=== PATIENT | male | born 1985 | race Caucasian/White ===

== ENCOUNTER 2020-05-15 19:28 | Emergency (ER) | payer OTHER ==
[~2020-05-15 19:28] MED LIST: AFRIN15 M1; AMOXICILLIN500 MG PO; AMOXICILLIN875 MG PO; BACTRIM DS TAB1 EACH PO; IBUPROFEN800 MG PO; KEFLEX500 MG PO; ZOFRAN 4 MG TAB4 MG PO
== END 2020-05-16 02:07 | disposition home or self-care (01) ==
LOC: ER1 19:28
PROVIDERS: Family Medicine
DX: F20.9 Schizophrenia, unspecified (principal); F15.10 Other stimulant abuse, uncomplicated; F17.200 Nicotine dependence, unspecified, uncomplicated; Z88.6 Allergy status to analgesic agent
CPT/HCPCS: 80307; 99284

== ENCOUNTER 2020-05-16 17:36 | Emergency (ER) | payer OTHER | END 2020-05-16 22:30 | disposition short-term general hospital (02) | LOC: ER1 17:36 | DX: F22 Delusional disorders (principal); Z20.828 Contact with and (suspected) exposure to other viral communicable diseases | CPT/HCPCS: 99285; U0002 ==

== ENCOUNTER 2020-06-05 16:49 | Emergency (ER) | payer OTHER | END 2020-06-05 22:28 | disposition home or self-care (01) | LOC: ER1 16:49 | DX: F20.9 Schizophrenia, unspecified (principal); F17.200 Nicotine dependence, unspecified, uncomplicated; Z20.822 Contact with and (suspected) exposure to COVID-19 | CPT/HCPCS: 99284; U0002 ==

== ENCOUNTER 2020-06-15 22:05 | Emergency (ER) | payer OTHER ==
[2020-06-16 01:35] LABS: RED BLOOD COUNT 5.25 M/UL (4.20-5.50); WHITE BLOOD COUNT 8.8 K/UL (4.5-11.0)
[2020-06-16 01:55] LABS: BUN/CREATININE RATIO 9 (0-10)
== END 2020-06-16 09:37 | disposition home or self-care (01) ==
LOC: ER1 22:05
PROVIDERS: Emergency Medicine; Family Medicine
DX: F20.9 Schizophrenia, unspecified (principal); Z88.6 Allergy status to analgesic agent; Z20.822 Contact with and (suspected) exposure to COVID-19
CPT/HCPCS: 71046; 80053; 80307; 81001; 85025; 85610; 93005; 99284; G0480; U0002

== ENCOUNTER 2020-07-10 20:50 | Emergency (ER) | payer OTHER | END 2020-07-11 02:30 | disposition home or self-care (01) | LOC: ER1 20:50 | DX: F31.9 Bipolar disorder, unspecified (principal); R44.1 Visual hallucinations; R00.0 Tachycardia, unspecified; F17.210 Nicotine dependence, cigarettes, uncomplicated; R44.0 Auditory hallucinations | CPT/HCPCS: 93005; 99284 ==

== ENCOUNTER 2020-07-11 20:21 | Emergency (ER) | payer OTHER | END 2020-07-12 04:22 | disposition home or self-care (01) | LOC: ER1 20:21 | DX: F32.9 Major depressive disorder, single episode, unspecified (principal); F17.210 Nicotine dependence, cigarettes, uncomplicated | CPT/HCPCS: 99284 ==

== ENCOUNTER 2020-07-29 19:07 | Emergency (ER) | payer OTHER | END 2020-07-30 09:05 | disposition short-term general hospital (02) | LOC: ER1 19:07 | DX: F20.9 Schizophrenia, unspecified (principal); Z20.822 Contact with and (suspected) exposure to COVID-19; F17.210 Nicotine dependence, cigarettes, uncomplicated | CPT/HCPCS: 99285; U0002 ==

== ENCOUNTER 2020-08-03 22:53 | Emergency (ER) | payer OTHER | END 2020-08-05 15:23 | disposition home or self-care (01) | LOC: ER1 22:53 | DX: R44.0 Auditory hallucinations (principal); R44.1 Visual hallucinations; R45.851 Suicidal ideations; F17.210 Nicotine dependence, cigarettes, uncomplicated; Z88.8 Allergy status to other drugs, medicaments and biological substances | CPT/HCPCS: 99284 ==

== ENCOUNTER 2020-08-07 21:43 | Emergency (ER) | payer OTHER | END 2020-08-08 06:35 | disposition short-term general hospital (02) | LOC: ER1 21:43 | PROVIDERS: Physician Assistant | DX: S90.421A Blister (nonthermal), right great toe, initial encounter (principal); R44.0 Auditory hallucinations; Z20.822 Contact with and (suspected) exposure to COVID-19; F17.210 Nicotine dependence, cigarettes, uncomplicated | CPT/HCPCS: 80307; 81001; 87086; 99285; U0002 ==

== ENCOUNTER 2020-09-06 20:12 | Emergency (ER) | payer OTHER | END 2020-09-07 07:09 | disposition short-term general hospital (02) | LOC: ER1 20:12 | DX: R44.3 Hallucinations, unspecified (principal); R11.0 Nausea; Z20.822 Contact with and (suspected) exposure to COVID-19 | CPT/HCPCS: 99285; U0002 ==

== ENCOUNTER 2020-09-26 21:06 | Emergency (ER) | payer OTHER | END 2020-09-27 03:15 | disposition home or self-care (01) | LOC: ER1 21:06 | DX: F20.9 Schizophrenia, unspecified (principal); F17.210 Nicotine dependence, cigarettes, uncomplicated; Z88.5 Allergy status to narcotic agent | CPT/HCPCS: 99283 ==

== ENCOUNTER 2020-10-03 16:13 | Emergency (ER) | payer OTHER | END 2020-10-03 19:05 | disposition home or self-care (01) | LOC: ER1 16:13 | DX: F29 Unspecified psychosis not due to a substance or known physiological condition (principal); E86.0 Dehydration; F17.210 Nicotine dependence, cigarettes, uncomplicated; Z88.6 Allergy status to analgesic agent | CPT/HCPCS: 99284 ==

== ENCOUNTER 2020-10-03 21:07 | Emergency (ER) | payer OTHER | END 2020-10-04 04:44 | disposition short-term general hospital (02) | LOC: ER1 21:07 | DX: R44.3 Hallucinations, unspecified (principal); F31.9 Bipolar disorder, unspecified; Z20.822 Contact with and (suspected) exposure to COVID-19 | CPT/HCPCS: 99285; U0002 ==

== ENCOUNTER 2020-10-12 20:51 | Emergency (ER) | payer OTHER | END 2020-10-13 06:29 | disposition home or self-care (01) | LOC: ER1 20:51 | DX: F20.9 Schizophrenia, unspecified (principal); F17.200 Nicotine dependence, unspecified, uncomplicated; F29 Unspecified psychosis not due to a substance or known physiological condition | CPT/HCPCS: 99284 ==

== ENCOUNTER 2020-10-14 23:45 | Emergency (ER) | payer OTHER | END 2020-10-15 06:22 | disposition home or self-care (01) | LOC: ER1 23:45 | DX: F20.9 Schizophrenia, unspecified (principal); F17.200 Nicotine dependence, unspecified, uncomplicated; Z88.8 Allergy status to other drugs, medicaments and biological substances | CPT/HCPCS: 51702; 99283 ==

== ENCOUNTER 2020-10-21 21:55 | Emergency (ER) | payer OTHER | END 2020-10-22 03:00 | disposition left against medical advice (07) | LOC: ER1 21:55 | DX: Z53.21 Procedure and treatment not carried out due to patient leaving prior to being seen by health care provider (principal) ==

== ENCOUNTER 2020-10-22 20:01 | Emergency (ER) | payer OTHER | END 2020-10-23 01:30 | disposition left against medical advice (07) | LOC: ER1 20:01 | DX: Z53.21 Procedure and treatment not carried out due to patient leaving prior to being seen by health care provider (principal) ==

== ENCOUNTER 2021-01-26 12:29 | Emergency (ER) | payer OTHER | END 2021-01-26 12:47 | disposition left against medical advice (07) | LOC: ER1 12:29 | DX: Z53.21 Procedure and treatment not carried out due to patient leaving prior to being seen by health care provider (principal) ==

== ENCOUNTER 2021-01-31 06:36 | Emergency (ER) | payer OTHER | END 2021-01-31 07:17 | disposition left against medical advice (07) | LOC: ER1 06:36 | DX: Z53.21 Procedure and treatment not carried out due to patient leaving prior to being seen by health care provider (principal) ==

== ENCOUNTER 2021-02-05 00:22 | Emergency (ER) | payer OTHER | END 2021-02-05 03:00 | disposition left against medical advice (07) | LOC: ER1 00:22 | DX: F29 Unspecified psychosis not due to a substance or known physiological condition (principal) | CPT/HCPCS: 99283 ==

== ENCOUNTER 2021-02-05 02:54 | Emergency (ER) | payer OTHER | END 2021-02-05 05:45 | disposition home or self-care (01) | LOC: ER1 02:54 | DX: R44.3 Hallucinations, unspecified (principal); Z88.5 Allergy status to narcotic agent; F17.200 Nicotine dependence, unspecified, uncomplicated | CPT/HCPCS: 99284 ==

== ENCOUNTER 2021-02-05 15:59 | Emergency (ER) | payer OTHER | END 2021-02-06 10:50 | disposition short-term general hospital (02) | LOC: ER1 15:59 | PROVIDERS: Physician Assistant Medical | DX: Z20.822 Contact with and (suspected) exposure to COVID-19 (principal) | CPT/HCPCS: 80307; 81001; 99285; U0002 ==

== ENCOUNTER 2021-02-18 18:50 | Emergency (ER) | payer OTHER | END 2021-02-18 23:40 | disposition home or self-care (01) | LOC: ER1 18:50 | DX: R44.0 Auditory hallucinations (principal); F17.210 Nicotine dependence, cigarettes, uncomplicated; Z88.8 Allergy status to other drugs, medicaments and biological substances | CPT/HCPCS: 99284 ==

== ENCOUNTER 2021-02-20 02:25 | Emergency (ER) | payer OTHER | END 2021-02-20 02:50 | disposition home or self-care (01) | LOC: ER1 02:25 | DX: F20.9 Schizophrenia, unspecified (principal) | CPT/HCPCS: 99284 ==

== ENCOUNTER 2021-02-25 13:29 | Emergency (ER) | payer OTHER | END 2021-02-25 16:40 | disposition home or self-care (01) | LOC: ER1 13:29 | DX: R44.3 Hallucinations, unspecified (principal); F17.210 Nicotine dependence, cigarettes, uncomplicated; Z88.8 Allergy status to other drugs, medicaments and biological substances | CPT/HCPCS: 99285 ==

== ENCOUNTER 2021-03-10 15:33 | Emergency (ER) | payer OTHER | END 2021-03-11 01:00 | disposition short-term general hospital (02) | LOC: ER1 15:33 | DX: R44.3 Hallucinations, unspecified (principal); F17.200 Nicotine dependence, unspecified, uncomplicated; Z20.822 Contact with and (suspected) exposure to COVID-19 | CPT/HCPCS: 99284; U0002 ==

== ENCOUNTER 2021-03-24 18:34 | Emergency (ER) | payer OTHER | END 2021-03-25 12:14 | disposition left against medical advice (07) | LOC: ER1 18:34 | DX: F20.9 Schizophrenia, unspecified (principal); R45.851 Suicidal ideations; Z20.822 Contact with and (suspected) exposure to COVID-19; R44.3 Hallucinations, unspecified; F19.10 Other psychoactive substance abuse, uncomplicated; F17.200 Nicotine dependence, unspecified, uncomplicated; Z88.6 Allergy status to analgesic agent | CPT/HCPCS: 99285; U0002 ==

== ENCOUNTER 2021-03-29 17:27 | Emergency (ER) | payer OTHER | END 2021-03-29 19:40 | disposition home or self-care (01) | LOC: ER1 17:27 | DX: R44.1 Visual hallucinations (principal) | CPT/HCPCS: 99284 ==

== ENCOUNTER 2021-04-04 06:12 | Emergency (ER) | payer OTHER | END 2021-04-04 08:59 | disposition left against medical advice (07) | LOC: ER1 06:12 | DX: R44.3 Hallucinations, unspecified (principal); F17.210 Nicotine dependence, cigarettes, uncomplicated | CPT/HCPCS: 99284 ==

== ENCOUNTER 2021-04-05 07:33 | Emergency (ER) | payer OTHER | END 2021-04-06 08:00 | disposition left against medical advice (07) | LOC: ER1 07:33 | DX: U07.1 COVID-19 (principal); R44.3 Hallucinations, unspecified; F17.200 Nicotine dependence, unspecified, uncomplicated | CPT/HCPCS: 99284; U0002 ==

== ENCOUNTER 2021-04-07 14:13 | Emergency (ER) | payer OTHER | END 2021-04-08 12:02 | disposition home or self-care (01) | LOC: ER1 14:13 | DX: R44.3 Hallucinations, unspecified (principal); F17.200 Nicotine dependence, unspecified, uncomplicated; Z88.6 Allergy status to analgesic agent; Z86.59 Personal history of other mental and behavioral disorders; Z20.822 Contact with and (suspected) exposure to COVID-19 | CPT/HCPCS: 99285; U0002 ==

== ENCOUNTER 2021-04-18 18:56 | Emergency (ER) | payer OTHER | END 2021-04-19 00:40 | LOC: ER1 18:56 | DX: R44.0 Auditory hallucinations (principal); Z20.822 Contact with and (suspected) exposure to COVID-19 | CPT/HCPCS: 99285; U0002 ==

== ENCOUNTER 2021-05-10 16:34 | Emergency (ER) | payer OTHER | END 2021-05-10 22:51 | disposition short-term general hospital (02) | LOC: ER1 16:34 | DX: R44.3 Hallucinations, unspecified (principal); F17.200 Nicotine dependence, unspecified, uncomplicated; Z86.59 Personal history of other mental and behavioral disorders; Z88.6 Allergy status to analgesic agent; Z20.822 Contact with and (suspected) exposure to COVID-19 | CPT/HCPCS: 99284; U0002 ==

== ENCOUNTER 2021-07-01 17:02 | Emergency (ER) | payer OTHER | END 2021-07-01 18:04 | disposition left against medical advice (07) | LOC: ER1 17:02 | DX: Z53.21 Procedure and treatment not carried out due to patient leaving prior to being seen by health care provider (principal) ==

== ENCOUNTER 2021-07-01 21:17 | Emergency (ER) | payer OTHER | END 2021-07-02 03:39 | disposition home or self-care (01) | LOC: ER1 21:17 | DX: R44.0 Auditory hallucinations (principal); Z88.0 Allergy status to penicillin; Z20.822 Contact with and (suspected) exposure to COVID-19; Z87.891 Personal history of nicotine dependence | CPT/HCPCS: 80307; 99284; U0002 ==

== ENCOUNTER 2021-08-12 12:22 | Emergency (ER) | payer MEDICARE, OTHER | END 2021-08-12 14:46 | disposition left against medical advice (07) | LOC: ER1 12:22 | DX: R44.3 Hallucinations, unspecified (principal); F17.290 Nicotine dependence, other tobacco product, uncomplicated | CPT/HCPCS: 99281 ==

== ENCOUNTER 2021-11-17 21:03 | Emergency (ER) | payer OTHER ==
[2021-11-17 22:27] LABS: HEMOGLOBIN 14.8 gm/dl (14.0-17.5); RED BLOOD COUNT 4.85 M/UL (4.20-5.50); WHITE BLOOD COUNT 8.7 K/UL (4.5-11.0)
[2021-11-17 22:48] LABS: BUN/CREATININE RATIO 22 (0-10)
[2021-11-18] MEDS ORDERED: CEPHALEXIN500 M1 PO (03:45)
[2021-11-18] MEDS ORDERED: ONDANSETRON ODT4 MG SL (03:45)
[2021-11-18] MEDS ORDERED: PROTONIX 40 MG40 M1 PO (03:45)
== END 2021-11-18 04:00 | disposition home or self-care (01) ==
LOC: ER1 21:03
PROVIDERS: Physician Assistant
DX: N39.0 Urinary tract infection, site not specified (principal); R31.9 Hematuria, unspecified; K92.0 Hematemesis; R20.2 Paresthesia of skin; Z88.6 Allergy status to analgesic agent; Z79.01 Long term (current) use of anticoagulants; Z86.718 Personal history of other venous thrombosis and embolism
CPT/HCPCS: 71045; 80053; 81001; 83690; 85025; 85379; 85610; 85730; 96374; 96375; 99284; C9113; J2405

== ENCOUNTER 2022-01-26 19:36 | Emergency (ER) | payer OTHER ==
[~2022-01-26 19:36] MED LIST changes: +CEPHALEXIN500 M1 PO; +ONDANSETRON ODT4 MG SL; +PROTONIX 40 MG40 M1 PO
== END 2022-01-26 20:01 | disposition left against medical advice (07) ==
LOC: ER1 19:36
DX: Z53.21 Procedure and treatment not carried out due to patient leaving prior to being seen by health care provider (principal)

== ENCOUNTER 2022-01-30 03:57 | Emergency (ER) | payer OTHER | END 2022-01-30 10:57 | disposition short-term general hospital (02) | LOC: ER1 03:57 | DX: R45.851 Suicidal ideations (principal); R44.0 Auditory hallucinations; R44.1 Visual hallucinations; Z20.822 Contact with and (suspected) exposure to COVID-19 | CPT/HCPCS: 99285; U0002 ==

== ENCOUNTER 2022-02-05 21:02 | Emergency (ER) | payer OTHER | END 2022-02-06 12:25 | disposition short-term general hospital (02) | LOC: ER1 21:02 | DX: F20.9 Schizophrenia, unspecified (principal); Z59.00 Homelessness unspecified; Z20.822 Contact with and (suspected) exposure to COVID-19 | CPT/HCPCS: 99285; U0002 ==